=== PATIENT | female | born 1990 | race African-American/Black ===

== ENCOUNTER 2019-07-02 22:45 | Emergency (ER) | payer MEDICAID ==
[~2019-07-02] VITALS: Ht 160 cm; Wt 50.0 kg
[2019-07-02] MEDS ORDERED: SODIUM CHLORIDE 0.9% 1,000 ML IV ONE (23:10)
[2019-07-02] MEDS ORDERED: LORAZEPAM 2MG/ML CPJ IM STA (23:10)
[2019-07-02] MEDS ORDERED: OLANZAPINE 10 MG/VIAL IM ONE (23:15)
[2019-07-02 23:47] LABS: BASOPHILS % 0.5 % (0.0-2.0); EOSINOPHILS % 2.4 % (0.0-5.0); HEMOGLOBIN. 10.3 g/dL (12.0-16.0); LYMPHOCYTES % 24.1 % (20.0-50.0); MEAN CORPUSCULAR HEMOGLOBIN 26.3 pg (28.0-32.0); MEAN CORPUSCULAR VOLUME 76.8 fL (81.0-99.0); MEAN PLATELET VOLUME 7.8 fl (7.4-10.4); MONOCYTES % 11.6 % (2.0-8.0); NEUTROPHILS % 61.4 % (40.0-76.0); PLATELET 224 x1000/uL (130-400); RED BLOOD CELL COUNT 3.91 mill/uL (4.2-5.4); RED CELL DISTRIBUTION WIDTH 15.8 % (11.6-14.6)
[2019-07-03 00:04] LABS: CHLORIDE 113 mEq/L (98-107)
[2019-07-03 00:11] LABS: ETHANOL BLOOD < 10 mg/dL
[2019-07-03 00:13] LABS: CREATINE KINASE 778 IU/L (26-192)
[2019-07-03 00:14] LABS: HCG SCREEN NEGATIVE
[2019-07-03 00:16] LABS: CREATINE KINASE MB FRACTION 5.7 ng/mL (0.5-3.6)
[2019-07-03] MEDS ORDERED: SODIUM CHLORIDE 0.9% 1,000 ML IV ONE (02:17)
[2019-07-03 03:45] LABS: CLARITY URINE CLEAR (CLEAR); COLOR URINE YELLOW (YELLOW); KETONES URINE TRACE (NEGATIVE); LEUKOCYTE ESTERASE URINE TRACE (NEGATIVE); NITRITE URINE NEGATIVE (NEGATIVE); OCCULT BLOOD URINE NEGATIVE (NEGATIVE); PROTEIN URINE NEGATIVE (NEGATIVE); SPECIFIC GRAVITY URINE 1.039 (1.005-1.030); UROBILINOGEN URINE 0.2 E.U./dL (0.2-1.0)
[2019-07-03 04:50] LABS: *BARBITURATES SCREEN URINE NEGATIVE (NEGATIVE); *BENZODIAZEPINES SCREEN URINE NEGATIVE (NEGATIVE); *COCAINE SCREEN URINE NEGATIVE (NEGATIVE)
[2019-07-03 04:51] LABS: CANNABINOID URINE SCREEN NEGATIVE (NEGATIVE); METHADONE URINE SCREEN NEGATIVE (NEGATIVE); OPIATES URINE SCREEN NEGATIVE (NEGATIVE); PHENCYCLIDINE URINE SCREEN NEGATIVE (NEGATIVE)
[2019-07-03 05:00] LABS: *AMPHETAMINES SCREEN URINE PRESUMTIVE POSITIVE (NEGATIVE)
[2019-07-03 14:25] VITALS: BP 105/58
== END 2019-07-03 14:26 | disposition home or self-care (01) ==
LOC: ER 22:45
DX: G92 Toxic encephalopathy (principal); S09.8XXA Other specified injuries of head, initial encounter; X58.XXXA Exposure to other specified factors, initial encounter; Y93.9 Activity, unspecified; Y92.9 Unspecified place or not applicable; M62.82 Rhabdomyolysis; T50.901A Poisoning by unspecified drugs, medicaments and biological substances, accidental (unintentional), initial encounter; F17.210 Nicotine dependence, cigarettes, uncomplicated
CPT/HCPCS: 36415; 70450; 80053; 80305; 80307; 80320; 80329; 81003; 82550; 82553; 83690; 84443; 84703; 85025; 93005; 96360; 96361; 96372; 99284; 99406; J2060; J3490; J7030; G0480